=== PATIENT | female | born 1960 | race Caucasian/White ===

== ENCOUNTER → 2025-01-25 12:27 | Outpatient (REF) | payer MEDICARE, OTHER, SELFPAY | LOC: RAD 12:27 | PROVIDERS: ATTENDING PHYSICIAN Internal Medicine Rheumatology; FAMILY PHYSICIAN Internal Medicine | DX: M17.0 Bilateral primary osteoarthritis of knee (principal) | CPT/HCPCS: 73560; 73565 ==